=== PATIENT | female | born 1960 | race Two or more races ===

== ENCOUNTER 2021-04-04 02:33 | Emergency (ER) | payer SELFPAY ==
[~2021-04-04] VITALS: Ht 170.2 cm; Wt 82.0 kg
[2021-04-04 05:51] LABS: BASOPHILS % 0.7 % (0.0-2.0); EOSINOPHILS % 2.9 % (0.0-5.0); HEMATOCRIT. 35.5 % (36.0-48.0); HEMOGLOBIN. 11.8 g/dL (12.0-16.0); LYMPHOCYTES % 33.4 % (20.0-50.0); MEAN CORPUSCULAR HEMOGLOBIN 30.5 pg (28.0-32.0); MEAN CORPUSCULAR VOLUME 91.2 fL (81.0-99.0); MEAN PLATELET VOLUME 7.5 fl (7.4-10.4); MONOCYTES % 6.3 % (2.0-8.0); NEUTROPHILS % 56.7 % (40.0-76.0); PLATELET 270 x1000/uL (130-400); RED BLOOD CELL COUNT 3.89 mill/uL (4.2-5.4); RED CELL DISTRIBUTION WIDTH 13.8 % (11.6-14.6)
[2021-04-04 06:04] LABS: CHLORIDE 110 mEq/L (98-107)
[2021-04-04 06:21] LABS: ETHANOL BLOOD 320 mg/dL
[2021-04-04 09:28] VITALS: BP 105/68
== END 2021-04-04 09:03 | disposition home or self-care (01) ==
LOC: ER 02:33
DX: F10.129 Alcohol abuse with intoxication, unspecified (principal); Y90.8 Blood alcohol level of 240 mg/100 ml or more; Z78.1 Physical restraint status; E11.9 Type 2 diabetes mellitus without complications
CPT/HCPCS: 36415; 80053; 80320; 82962; 85025; 99285; G0480